=== PATIENT | female | born 1955 | race Two or more races ===

== ENCOUNTER 2017-09-17 08:32 | Outpatient (CLI) | payer OTHER | END 2017-09-17 08:34 | disposition home or self-care (01) | LOC: MAMO-SONO 08:32 | DX: Z12.31 Encounter for screening mammogram for malignant neoplasm of breast (principal); Z87.898 Personal history of other specified conditions; Z12.39 Encounter for other screening for malignant neoplasm of breast; J45.998 Other asthma ==

== ENCOUNTER 2017-11-07 08:19 | Outpatient (CLI) | payer OTHER | END 2017-11-07 08:27 | disposition home or self-care (01) | LOC: SONOGRAMA 08:19 → MAMO-SONO 09:45 | DX: R10.13 Epigastric pain (principal) ==

== ENCOUNTER 2018-09-20 08:57 | Outpatient (CLI) | payer OTHER | END 2018-09-20 09:01 | disposition home or self-care (01) | LOC: MAMO-SONO 08:57 | DX: Z12.31 Encounter for screening mammogram for malignant neoplasm of breast (principal); Z87.898 Personal history of other specified conditions ==

== ENCOUNTER 2018-09-20 10:31 | Outpatient (CLI) | payer OTHER | END 2018-09-20 10:36 | disposition home or self-care (01) | LOC: RAD 10:31 | DX: M15.0 Primary generalized (osteo)arthritis (principal); M15.4 Erosive (osteo)arthritis ==

== ENCOUNTER 2019-01-01 09:32 | Outpatient (CLI) | payer OTHER | END 2019-01-01 09:36 | disposition home or self-care (01) | LOC: NUCLEAR 09:32 | DX: M81.0 Age-related osteoporosis without current pathological fracture (principal) ==

== ENCOUNTER 2019-01-20 12:33 | Outpatient (CLI) | payer OTHER | END 2019-01-20 12:43 | disposition home or self-care (01) | LOC: RAD 12:33 | DX: M25.552 Pain in left hip (principal); M25.562 Pain in left knee; M25.561 Pain in right knee ==

== ENCOUNTER 2019-01-31 07:20 | Outpatient (CLI) | payer OTHER | END 2019-01-31 07:32 | disposition home or self-care (01) | LOC: MRI 07:20 | DX: M54.5 Low back pain (principal) | CPT/HCPCS: 72148 ==

== ENCOUNTER 2019-04-02 07:51 | Outpatient (CLI) | payer OTHER | END 2019-04-02 07:54 | disposition home or self-care (01) | LOC: TOM 07:51 | DX: Z86.010 Personal history of colon polyps (principal); K56.600 Partial intestinal obstruction, unspecified as to cause ==

== ENCOUNTER 2019-10-28 11:10 | Outpatient (CLI) | payer OTHER | END 2019-10-28 11:16 | disposition home or self-care (01) | LOC: LAB 11:10 | DX: Z20.828 Contact with and (suspected) exposure to other viral communicable diseases (principal) ==

== ENCOUNTER → 2019-10-29 | Outpatient (CLI) | payer OTHER | END | disposition home or self-care (01) | LOC: SONOGRAMA 08:15 → MAMO-SONO 10:15 | DX: M75.102 Unspecified rotator cuff tear or rupture of left shoulder, not specified as traumatic (principal) ==

== ENCOUNTER → 2019-12-29 06:25 | Outpatient (CLI) | payer OTHER | END | disposition home or self-care (01) | LOC: LAB 06:25 | PROVIDERS: ATTEND Orthopaedic Surgery | DX: R07.89 Other chest pain (principal); I10 Essential (primary) hypertension; D68.8 Other specified coagulation defects; E78.2 Mixed hyperlipidemia; N39.0 Urinary tract infection, site not specified; Z03.818 Encounter for observation for suspected exposure to other biological agents ruled out; Z20.828 Contact with and (suspected) exposure to other viral communicable diseases ==

== ENCOUNTER 2019-12-30 10:44 | Outpatient (CLI) | payer OTHER | END 2019-12-30 10:48 | disposition home or self-care (01) | LOC: LAB 10:44 | PROVIDERS: ATTEND Specialist | DX: N39.0 Urinary tract infection, site not specified (principal) ==

== ENCOUNTER 2020-01-01 08:43 | Outpatient (CLI) | payer OTHER | END 2020-01-01 08:59 | disposition home or self-care (01) | LOC: LAB 08:43 | PROVIDERS: ATTEND Specialist | DX: N39.0 Urinary tract infection, site not specified (principal); E11.65 Type 2 diabetes mellitus with hyperglycemia ==

== ENCOUNTER 2020-06-14 07:17 | Outpatient (CLI) | payer OTHER | END 2020-06-14 07:22 | disposition home or self-care (01) | LOC: MAMO-SONO 07:17 | PROVIDERS: ATTEND Specialist | DX: Z12.31 Encounter for screening mammogram for malignant neoplasm of breast (principal); R92.0 Mammographic microcalcification found on diagnostic imaging of breast; N64.59 Other signs and symptoms in breast ==

== ENCOUNTER → 2020-10-20 06:23 | Outpatient (CLI) | payer OTHER | END | disposition home or self-care (01) | LOC: LAB 06:23 | PROVIDERS: ATTEND Specialist | DX: E11.21 Type 2 diabetes mellitus with diabetic nephropathy (principal); U07.1 COVID-19; N39.0 Urinary tract infection, site not specified; Z12.11 Encounter for screening for malignant neoplasm of colon; J45.998 Other asthma ==

== ENCOUNTER 2021-02-07 15:00 | Outpatient (CLI) | payer OTHER | END 2021-02-07 18:45 | disposition home or self-care (01) | LOC: PPH VACUNA 15:00 | DX: Z23 Encounter for immunization (principal) ==

== ENCOUNTER → 2021-04-05 06:22 | Outpatient (CLI) | payer OTHER | END | disposition home or self-care (01) | LOC: LAB 06:22 | PROVIDERS: ATTEND Specialist | DX: R07.89 Other chest pain (principal); E03.8 Other specified hypothyroidism; E78.2 Mixed hyperlipidemia; J45.998 Other asthma ==

== ENCOUNTER 2021-04-05 07:19 | Outpatient (CLI) | payer OTHER | END 2021-04-05 07:28 | disposition home or self-care (01) | LOC: SONOGRAMA 07:19 → MAMO-SONO 08:15 | PROVIDERS: ATTEND Specialist | DX: E04.2 Nontoxic multinodular goiter (principal); E03.8 Other specified hypothyroidism ==

== ENCOUNTER 2021-07-21 06:14 | Outpatient (CLI) | payer OTHER | END 2021-07-21 06:15 | disposition home or self-care (01) | LOC: LAB 06:14 | PROVIDERS: ATTEND Specialist | DX: E03.9 Hypothyroidism, unspecified (principal); E11.21 Type 2 diabetes mellitus with diabetic nephropathy; N39.9 Disorder of urinary system, unspecified; E78.2 Mixed hyperlipidemia; E11.65 Type 2 diabetes mellitus with hyperglycemia; Z12.11 Encounter for screening for malignant neoplasm of colon; D64.9 Anemia, unspecified; J45.998 Other asthma ==

== ENCOUNTER → 2021-07-22 06:28 | Outpatient (CLI) | payer OTHER | END | disposition home or self-care (01) | LOC: LAB 06:28 | PROVIDERS: ATTEND Specialist | DX: E03.9 Hypothyroidism, unspecified (principal); E11.21 Type 2 diabetes mellitus with diabetic nephropathy; N39.9 Disorder of urinary system, unspecified; E78.2 Mixed hyperlipidemia; E11.65 Type 2 diabetes mellitus with hyperglycemia; Z12.11 Encounter for screening for malignant neoplasm of colon; D64.9 Anemia, unspecified ==

== ENCOUNTER 2021-10-05 06:14 | Outpatient (CLI) | payer OTHER | END 2021-10-05 06:20 | disposition home or self-care (01) | LOC: LAB 06:14 | PROVIDERS: ATTEND Specialist | DX: N25.81 Secondary hyperparathyroidism of renal origin (principal); E78.2 Mixed hyperlipidemia; J45.998 Other asthma ==

== ENCOUNTER 2021-10-05 07:13 | Outpatient (CLI) | payer OTHER | END 2021-10-05 07:19 | disposition home or self-care (01) | LOC: MAMO-SONO 07:13 | PROVIDERS: ATTEND Specialist | DX: Z12.31 Encounter for screening mammogram for malignant neoplasm of breast (principal) ==

== ENCOUNTER 2021-10-05 08:00 | Outpatient (CLI) | payer OTHER | END 2021-10-05 08:30 | disposition home or self-care (01) | LOC: PPH VACUNA 08:00 | PROVIDERS: ATTEND Emergency Medicine Pediatric Emergency Medicine | DX: Z23 Encounter for immunization (principal) ==

== ENCOUNTER 2021-11-03 08:08 | Outpatient (CLI) | payer OTHER | END 2021-11-03 08:09 | disposition home or self-care (01) | LOC: NUCLEAR 08:08 | PROVIDERS: ATTEND Specialist | DX: E21.5 Disorder of parathyroid gland, unspecified (principal); Z88.8 Allergy status to other drugs, medicaments and biological substances | CPT/HCPCS: 78071; A9500 ==

== ENCOUNTER 2022-01-18 07:26 | Outpatient (CLI) | payer OTHER | END 2022-01-18 07:30 | disposition home or self-care (01) | LOC: LAB 07:26 | PROVIDERS: ATTEND Specialist | DX: D50.9 Iron deficiency anemia, unspecified (principal); I11.9 Hypertensive heart disease without heart failure; E78.2 Mixed hyperlipidemia; E03.9 Hypothyroidism, unspecified; Z12.11 Encounter for screening for malignant neoplasm of colon ==

== ENCOUNTER → 2022-01-19 | Outpatient (CLI) | payer OTHER | END | disposition home or self-care (01) | LOC: RAD 11:38 | PROVIDERS: ATTEND Orthopaedic Surgery | DX: M25.561 Pain in right knee (principal); M25.562 Pain in left knee; M25.431 Effusion, right wrist; M25.432 Effusion, left wrist ==

== ENCOUNTER 2022-05-02 08:31 | Outpatient (CLI) | payer OTHER | END 2022-05-02 08:41 | disposition home or self-care (01) | LOC: PPH VACUNA 08:31 | PROVIDERS: ATTEND Emergency Medicine Pediatric Emergency Medicine | DX: Z23 Encounter for immunization (principal) ==

== ENCOUNTER 2022-08-05 07:09 | Outpatient (CLI) | payer OTHER | END 2022-08-05 07:10 | disposition home or self-care (01) | LOC: LAB 07:09 | PROVIDERS: ATTEND Specialist | DX: R07.89 Other chest pain (principal); E03.8 Other specified hypothyroidism; M00.80 Arthritis due to other bacteria, unspecified joint; D64.89 Other specified anemias; E11.69 Type 2 diabetes mellitus with other specified complication; N39.9 Disorder of urinary system, unspecified; Z13.220 Encounter for screening for lipoid disorders; E11.21 Type 2 diabetes mellitus with diabetic nephropathy; R19.5 Other fecal abnormalities ==

== ENCOUNTER → 2022-08-07 06:22 | Outpatient (CLI) | payer OTHER | END | disposition home or self-care (01) | LOC: LAB 06:22 | PROVIDERS: ATTEND Specialist | DX: R07.89 Other chest pain (principal); E03.8 Other specified hypothyroidism; M00.89 Polyarthritis due to other bacteria; D64.89 Other specified anemias; E11.69 Type 2 diabetes mellitus with other specified complication; N39.9 Disorder of urinary system, unspecified; Z13.220 Encounter for screening for lipoid disorders; E11.21 Type 2 diabetes mellitus with diabetic nephropathy; R19.5 Other fecal abnormalities ==

== ENCOUNTER → 2022-09-08 06:14 | Outpatient (CLI) | payer OTHER | END | disposition home or self-care (01) | LOC: LAB 06:14 | PROVIDERS: ATTEND Ophthalmology | DX: I11.9 Hypertensive heart disease without heart failure (principal); D68.8 Other specified coagulation defects; H25.013 Cortical age-related cataract, bilateral; Z98.41 Cataract extraction status, right eye ==

== ENCOUNTER 2022-10-14 07:17 | Outpatient (CLI) | payer OTHER | END 2022-10-14 07:23 | disposition home or self-care (01) | LOC: LAB 07:17 | PROVIDERS: ATTEND Internal Medicine Gastroenterology | DX: K29.30 Chronic superficial gastritis without bleeding (principal); B96.81 Helicobacter pylori [H. pylori] as the cause of diseases classified elsewhere; K57.30 Diverticulosis of large intestine without perforation or abscess without bleeding; Z86.010 Personal history of colon polyps; Z80.0 Family history of malignant neoplasm of digestive organs; R10.13 Epigastric pain; Z11.52 Encounter for screening for COVID-19; Z20.822 Contact with and (suspected) exposure to COVID-19; Z20.828 Contact with and (suspected) exposure to other viral communicable diseases ==

== ENCOUNTER 2022-10-17 06:24 | Outpatient (CLI) | payer OTHER | END 2022-10-17 06:30 | disposition home or self-care (01) | LOC: LAB 06:24 | PROVIDERS: ATTEND Specialist | DX: Z13.220 Encounter for screening for lipoid disorders (principal); E11.69 Type 2 diabetes mellitus with other specified complication; D64.89 Other specified anemias; N39.9 Disorder of urinary system, unspecified; N25.81 Secondary hyperparathyroidism of renal origin; R19.5 Other fecal abnormalities ==

== ENCOUNTER 2022-10-17 07:13 | Outpatient (CLI) | payer OTHER | END 2022-10-17 07:23 | disposition home or self-care (01) | LOC: MAMO-SONO 07:13 | PROVIDERS: ATTEND Specialist | DX: Z12.31 Encounter for screening mammogram for malignant neoplasm of breast (principal); Z12.39 Encounter for other screening for malignant neoplasm of breast; N60.39 Fibrosclerosis of unspecified breast ==

== ENCOUNTER 2022-12-11 06:58 | Outpatient (CLI) | payer OTHER | END 2022-12-11 06:59 | disposition home or self-care (01) | LOC: LAB 06:58 | PROVIDERS: ATTEND Internal Medicine Gastroenterology | DX: Z11.52 Encounter for screening for COVID-19 (principal); Z20.822 Contact with and (suspected) exposure to COVID-19; Z20.828 Contact with and (suspected) exposure to other viral communicable diseases ==

== ENCOUNTER 2023-01-15 06:38 | Outpatient (CLI) | payer OTHER | END 2023-01-15 06:39 | disposition home or self-care (01) | LOC: LAB 06:38 | PROVIDERS: ATTEND Specialist | DX: Z13.220 Encounter for screening for lipoid disorders (principal); D64.89 Other specified anemias; E03.8 Other specified hypothyroidism; N25.81 Secondary hyperparathyroidism of renal origin; E11.69 Type 2 diabetes mellitus with other specified complication ==

== ENCOUNTER 2023-01-15 07:17 | Outpatient (CLI) | payer OTHER | END 2023-01-15 07:46 | disposition home or self-care (01) | LOC: TOM 07:17 | PROVIDERS: ATTEND Specialist | DX: D35.00 Benign neoplasm of unspecified adrenal gland (principal); E26.9 Hyperaldosteronism, unspecified ==

== ENCOUNTER 2023-01-30 07:08 | Outpatient (CLI) | payer OTHER | END 2023-01-30 07:18 | disposition home or self-care (01) | LOC: TOM 07:08 | PROVIDERS: ATTEND Specialist | DX: C72.0 Malignant neoplasm of spinal cord (principal); E21.5 Disorder of parathyroid gland, unspecified; E21.0 Primary hyperparathyroidism | CPT/HCPCS: 70492; Q9965 ==

== ENCOUNTER 2023-04-17 06:36 | Outpatient (CLI) | payer OTHER ==
[2023-04-17 07:10] LABS: PH,URINE 7.5 (5.0-8.0); URINE APPEARANCE Turbid; URINE BILIRRUBIN Negative (NEGATIVE); URINE BLOOD Negative; URINE COLOR Yellow; URINE GLUCOSE Negative (NEGATIVE); URINE LEUKOCYTE Moderate; URINE NITRATE Negative; URINE PROTEIN Trace (NEGATIVE)
[2023-04-17 07:11] LABS: URINE EPITHELIAL CELLS 178.4 uL (0.0-38.8); URINE RBC 2.8 uL (0.0-20.8); URINE WBC 667.1 uL (0.0-23.2)
[2023-04-17 07:17] LABS: URINE BACTERIA > 9821.5 uL (0.0-1933)
[2023-04-17 07:18] LABS: HEMATOCRIT 38.3 % (36.0-45.00); HEMOGLOBIN 12.9 g/dL (12.0-15.00); MEAN CORPUSCULAR HEMOGLOBIN 29.4 pg (27.00-32.0); MEAN CORPUSCULAR HGB CONC 33.8 g/dl (32.0-36.0); PLATELET COUNT 188 K/uL (150-450); RED CELL DISTRIBUTION WIDTH 13.8 % (11.5-14.5)
[2023-04-17 08:03] LABS: ALBUMIN 3.3 gm/dL (3.4-5.0); BILIRUBIN TOTAL 0.38 mg/dL (0.3-1.2); CALCIUM 8.7 mg/dL (8.5-10.1); CHOL HDL RATIO 3.7 (0-5.0); CREATININE SERUM 0.63 mg/dL (0.55-1.02); FREE TRIODOTIRONINE 2.96 pg/ml (2.18-3.98); GFR 94.25; GLOBULINA 3.3 G/DL (2.4-3.5); POTASSIUM 3.52 mEq/L (3.5-5.1); T4 FREE 0.87 NG/ML (0.76-1.46); TOTAL PROTEIN 6.6 gm/dL (6.4-8.2); TSH 4.82 uIU/mL (0.358-3.74)
== END 2023-04-17 06:37 | disposition home or self-care (01) ==
LOC: LAB 06:36
PROVIDERS: ATTEND Specialist
DX: E03.9 Hypothyroidism, unspecified (principal); E11.21 Type 2 diabetes mellitus with diabetic nephropathy; N39.0 Urinary tract infection, site not specified; E78.2 Mixed hyperlipidemia; E11.65 Type 2 diabetes mellitus with hyperglycemia; D64.9 Anemia, unspecified

== ENCOUNTER 2023-07-05 07:06 | Outpatient (CLI) | payer OTHER | END 2023-07-05 07:21 | disposition home or self-care (01) | LOC: SONOGRAMA 07:06 | PROVIDERS: ATTEND Specialist | DX: M75.40 Impingement syndrome of unspecified shoulder (principal); M75.100 Unspecified rotator cuff tear or rupture of unspecified shoulder, not specified as traumatic ==

== ENCOUNTER → 2023-07-17 06:42 | Outpatient (CLI) | payer OTHER ==
[2023-07-17 07:49] LABS: PH,URINE 7.5 (5.0-8.0); URINE APPEARANCE Turbid; URINE BILIRRUBIN Negative (NEGATIVE); URINE BLOOD Small; URINE COLOR Yellow; URINE GLUCOSE Negative (NEGATIVE); URINE LEUKOCYTE Small; URINE NITRATE Negative; URINE PROTEIN Negative (NEGATIVE)
[2023-07-17 07:51] LABS: URINE BACTERIA 3458.4 uL (0.0-1933); URINE RBC 101.6 uL (0.0-20.8); URINE WBC 183.1 uL (0.0-23.2)
[2023-07-17 07:55] LABS: HEMOGLOBIN 13.3 g/dL (12.0-15.00); MEAN CELL VOLUME 86.3 fL (80.00-100.00); MEAN CORPUSCULAR HEMOGLOBIN 28.7 pg (27.00-32.0); MEAN CORPUSCULAR HGB CONC 33.3 g/dl (32.0-36.0); PLATELET COUNT 196 K/uL (150-450); RED BLOOD COUNT 4.63 M/uL (4.00-6.00); RED CELL DISTRIBUTION WIDTH 13.5 % (11.5-14.5)
[2023-07-17 08:20] LABS: ALBUMIN 3.5 gm/dL (3.4-5.0); BILIRUBIN TOTAL 0.46 mg/dL (0.3-1.2); CHOL HDL RATIO 4.2 (0-5.0); CREATININE SERUM 0.68 mg/dL (0.55-1.02); FREE TRIODOTIRONINE 3.27 pg/ml (2.18-3.98); GFR 86.3; GLOBULINA 3.4 G/DL (2.4-3.5); POTASSIUM 3.58 mEq/L (3.5-5.1); T4 FREE 0.95 NG/ML (0.76-1.46); T4 TOTAL 9.93 UG/DL (4.8-13.9); TOTAL PROTEIN 6.9 gm/dL (6.4-8.2); TSH 2.94 uIU/mL (0.358-3.74)
[2023-07-17 08:22] LABS: C-REACTIVE PROTEIN 0.37 MG/DL (0.00-0.29)
[2023-07-17 08:28] LABS: URINE EPITHELIAL CELLS > 201.7 uL (0.0-38.8)
== END | disposition home or self-care (01) ==
LOC: LAB 06:42
PROVIDERS: ATTEND Specialist
DX: E11.69 Type 2 diabetes mellitus with other specified complication (principal); Z13.220 Encounter for screening for lipoid disorders; J45.991 Cough variant asthma

== ENCOUNTER → 2023-07-18 06:20 | Outpatient (CLI) | payer OTHER ==
[2023-07-18 10:40] LABS: ob NEGATIVE (NEGATIVE)
== END | disposition home or self-care (01) ==
LOC: LAB 06:20
PROVIDERS: ATTEND Specialist
DX: E11.69 Type 2 diabetes mellitus with other specified complication (principal); Z13.220 Encounter for screening for lipoid disorders; E03.8 Other specified hypothyroidism; D64.89 Other specified anemias; R19.5 Other fecal abnormalities; N39.9 Disorder of urinary system, unspecified; N25.81 Secondary hyperparathyroidism of renal origin

== ENCOUNTER 2023-07-31 08:26 | Outpatient (CLI) | payer OTHER | END 2023-07-31 08:27 | disposition home or self-care (01) | LOC: LAB 08:26 | PROVIDERS: ATTEND Anesthesiology | DX: R05.8 Other specified cough (principal); Z20.822 Contact with and (suspected) exposure to COVID-19 ==

== ENCOUNTER 2024-01-17 07:04 | Outpatient (CLI) | payer OTHER ==
[2024-01-17 07:38] LABS: HEMATOCRIT 39.1 % (36.0-45.00); HEMOGLOBIN 13.3 g/dL (12.0-15.00); MEAN CELL VOLUME 87.8 fL (80.00-100.00); MEAN CORPUSCULAR HEMOGLOBIN 29.9 pg (27.00-32.0); PLATELET COUNT 196 K/uL (150-450); RED BLOOD COUNT 4.45 M/uL (4.00-6.00); RED CELL DISTRIBUTION WIDTH 13.4 % (11.5-14.5)
[2024-01-17 07:40] LABS: PH,URINE 6.5 (5.0-8.0); URINE APPEARANCE Cloudy; URINE BILIRRUBIN Negative (NEGATIVE); URINE BLOOD Negative; URINE COLOR Yellow; URINE GLUCOSE Negative (NEGATIVE); URINE KETONE Negative (NEGATIVE); URINE LEUKOCYTE Moderate; URINE NITRATE Positive; URINE PROTEIN Trace (NEGATIVE); URINE UROBILINOGEN 0.2 E.U./dl
[2024-01-17 07:44] LABS: URINE RBC 11.7 uL (0.0-20.8); URINE WBC 597.5 uL (0.0-23.2)
[2024-01-17 08:01] LABS: URINE BACTERIA > 9821.5 uL (0.0-1933); URINE CAST 0.45 uL (0.0-1.40)
[2024-01-17 08:40] LABS: ALBUMIN 3.5 gm/dL (3.4-5.0); BILIRUBIN TOTAL 0.45 mg/dL (0.3-1.2); CALCIUM 9.1 mg/dL (8.5-10.1); CHOL HDL RATIO 3.9 (0-5.0); CREATININE SERUM 0.74 mg/dL (0.55-1.02); FREE TRIODOTIRONINE 2.83 pg/ml (2.18-3.98); GFR 78.04; GLOBULINA 3.1 G/DL (2.4-3.5); POTASSIUM 3.63 mEq/L (3.5-5.1); T4 FREE 0.89 NG/ML (0.76-1.46); TOTAL PROTEIN 6.6 gm/dL (6.4-8.2); TSH 3.8 uIU/mL (0.358-3.74)
[2024-01-17 08:52] LABS: C-REACTIVE PROTEIN 0.33 MG/DL (0.00-0.29)
== END 2024-01-17 07:11 | disposition home or self-care (01) ==
LOC: LAB 07:04
PROVIDERS: ATTEND Specialist
DX: D64.89 Other specified anemias (principal); E11.21 Type 2 diabetes mellitus with diabetic nephropathy; N39.0 Urinary tract infection, site not specified; E11.69 Type 2 diabetes mellitus with other specified complication; N25.81 Secondary hyperparathyroidism of renal origin; N39.9 Disorder of urinary system, unspecified; E03.8 Other specified hypothyroidism; Z13.220 Encounter for screening for lipoid disorders; R07.89 Other chest pain

== ENCOUNTER 2024-04-08 09:17 | Outpatient (CLI) | payer OTHER | END 2024-04-08 09:19 | disposition home or self-care (01) | LOC: NUCLEAR 09:17 | DX: I65.1 Occlusion and stenosis of basilar artery (principal); R07.0 Pain in throat; I25.10 Atherosclerotic heart disease of native coronary artery without angina pectoris; M81.0 Age-related osteoporosis without current pathological fracture ==

== ENCOUNTER 2024-04-11 07:08 | Outpatient (CLI) | payer OTHER | END 2024-04-11 07:10 | disposition home or self-care (01) | LOC: NUCLEAR 07:08 | PROVIDERS: ATTEND Internal Medicine | DX: I20.9 Angina pectoris, unspecified (principal) | CPT/HCPCS: 78452; 93017; A9500 ==

== ENCOUNTER 2024-04-16 07:10 | Outpatient (CLI) | payer OTHER | END 2024-04-16 07:11 | disposition home or self-care (01) | LOC: NUCLEAR 07:10 | PROVIDERS: ATTEND Specialist | DX: D35.1 Benign neoplasm of parathyroid gland (principal) | CPT/HCPCS: 78070; A9500 ==

== ENCOUNTER 2024-04-28 06:40 | Outpatient (CLI) | payer OTHER ==
[2024-04-28 07:40] LABS: HEMATOCRIT 39.6 % (36.0-45.00); HEMOGLOBIN 13.5 g/dL (12.0-15.00); MEAN CELL VOLUME 87.6 fL (80.00-100.00); MEAN CORPUSCULAR HEMOGLOBIN 29.9 pg (27.00-32.0); MEAN CORPUSCULAR HGB CONC 34.1 g/dl (32.0-36.0); PLATELET COUNT 193 K/uL (150-450); RED BLOOD COUNT 4.53 M/uL (4.00-6.00); RED CELL DISTRIBUTION WIDTH 13.2 % (11.5-14.5)
[2024-04-28 07:46] LABS: URINE APPEARANCE Cloudy; URINE BILIRRUBIN Negative (NEGATIVE); URINE BLOOD Negative; URINE COLOR Yellow; URINE GLUCOSE Negative (NEGATIVE); URINE KETONE Trace (NEGATIVE); URINE LEUKOCYTE Moderate; URINE NITRATE Negative; URINE PROTEIN Trace (NEGATIVE)
[2024-04-28 07:57] LABS: URINE EPITHELIAL CELLS 25.6 uL (0.0-38.8); URINE RBC 39.3 uL (0.0-20.8); URINE WBC 2013.7 uL (0.0-23.2)
[2024-04-28 07:59] LABS: ob NEGATIVE (NEGATIVE)
[2024-04-28 08:21] LABS: URINE CRYSTALS MODERATE /HPF
[2024-04-28 08:26] LABS: ALBUMIN 3.5 gm/dL (3.4-5.0); ALKALINE PHOSPHATASE 128 U/L (50-136); ALT/SGPT 20 U/L (12-78); ANION GAP 6 (10.0-20.0); AST/SGOT 19 U/L (15-37); BILIRUBIN TOTAL 0.31 mg/dL (0.3-1.2); BLOOD UREA NITROGEN 10 mg/dL (7-18); BUN CREA RATIO 14 (7.0-25.0); CALCIUM 9.1 mg/dL (8.5-10.1); CARBON DIOXIDE 31 mEq/L (21-32); CHLORIDE 109 mmol/L (98-107); CREATININE SERUM 0.71 mg/dL (0.55-1.02); GFR 81.86; GLOBULINA 3.1 G/DL (2.4-3.5); GLUCOSE FASTING 93 mg/dL (65-100); OSMOLALITY SERUM 282 MOSM/KG (275-295); POTASSIUM 4.03 mEq/L (3.5-5.1); SODIUM 142 mmol/L (136-145); TOTAL PROTEIN 6.6 gm/dL (6.4-8.2)
[2024-04-28 08:42] LABS: C-REACTIVE PROTEIN < 0.29 MG/DL (0.00-0.29); CHOL HDL RATIO 4.3 (0-5.0); FREE TRIODOTIRONINE 3.14 pg/ml (2.18-3.98)
== END 2024-04-28 06:49 | disposition home or self-care (01) ==
LOC: LAB 06:40
PROVIDERS: ATTEND Specialist
DX: E11.69 Type 2 diabetes mellitus with other specified complication (principal); N39.9 Disorder of urinary system, unspecified; Z13.220 Encounter for screening for lipoid disorders; E03.8 Other specified hypothyroidism; R07.89 Other chest pain; N25.81 Secondary hyperparathyroidism of renal origin; E11.21 Type 2 diabetes mellitus with diabetic nephropathy; M00.80 Arthritis due to other bacteria, unspecified joint; K92.2 Gastrointestinal hemorrhage, unspecified; Z12.11 Encounter for screening for malignant neoplasm of colon; N39.0 Urinary tract infection, site not specified; D64.89 Other specified anemias

== ENCOUNTER 2024-07-25 06:52 | Outpatient (CLI) | payer OTHER ==
[2024-07-25 07:51] LABS: HEMATOCRIT 39.3 % (36.0-45.00); HEMOGLOBIN 13.3 g/dL (12.0-15.00); MEAN CELL VOLUME 88.2 fL (80.00-100.00); MEAN CORPUSCULAR HEMOGLOBIN 29.9 pg (27.00-32.0); MEAN CORPUSCULAR HGB CONC 33.9 g/dl (32.0-36.0); PLATELET COUNT 192 K/uL (150-450); RED BLOOD COUNT 4.46 M/uL (4.00-6.00); RED CELL DISTRIBUTION WIDTH 13.7 % (11.5-14.5)
[2024-07-25 08:01] LABS: URINE APPEARANCE Clear; URINE BACTERIA 132.1 uL (0.0-1933); URINE BILIRRUBIN Negative (NEGATIVE); URINE BLOOD Negative; URINE COLOR Yellow; URINE EPITHELIAL CELLS 28.1 uL (0.0-38.8); URINE GLUCOSE Negative (NEGATIVE); URINE KETONE Negative (NEGATIVE); URINE LEUKOCYTE Negative; URINE NITRATE Negative; URINE PROTEIN Negative (NEGATIVE); URINE RBC 5.7 uL (0.0-20.8); URINE WBC 9.3 uL (0.0-23.2)
[2024-07-25 08:10] LABS: CREATININE URINE RANDOM 99.9 MG/DL (30-125)
[2024-07-25 08:27] LABS: ALBUMIN 3.4 gm/dL (3.4-5.0); BILIRUBIN TOTAL 0.32 mg/dL (0.3-1.2); CALCIUM 8.8 mg/dL (8.5-10.1); CHOL HDL RATIO 3.4 (0-5.0); CREATININE SERUM 0.72 mg/dL (0.55-1.02); GFR 80.55; GLOBULINA 3.4 G/DL (2.4-3.5); POTASSIUM 4.02 mEq/L (3.5-5.1); TOTAL PROTEIN 6.8 gm/dL (6.4-8.2)
== END 2024-07-25 06:53 | disposition home or self-care (01) ==
LOC: LAB 06:52
PROVIDERS: ATTEND Specialist
DX: E78.2 Mixed hyperlipidemia (principal); E11.65 Type 2 diabetes mellitus with hyperglycemia; D64.9 Anemia, unspecified; E55.9 Vitamin D deficiency, unspecified; E11.21 Type 2 diabetes mellitus with diabetic nephropathy; N39.9 Disorder of urinary system, unspecified; N25.81 Secondary hyperparathyroidism of renal origin

== ENCOUNTER 2024-07-25 07:47 | Outpatient (CLI) | payer OTHER | END 2024-07-25 07:51 | disposition home or self-care (01) | LOC: SONOGRAMA 07:47 | PROVIDERS: ATTEND Specialist | DX: R33.9 Retention of urine, unspecified (principal); J45.998 Other asthma ==

== ENCOUNTER 2024-08-07 09:26 | Outpatient (CLI) | payer OTHER | END 2024-08-07 09:33 | disposition home or self-care (01) | LOC: SONOGRAMA 09:26 | PROVIDERS: ATTEND Specialist | DX: N31.9 Neuromuscular dysfunction of bladder, unspecified (principal) ==

== ENCOUNTER 2024-09-10 07:58 | Outpatient (CLI) | payer OTHER | END 2024-09-10 08:07 | disposition home or self-care (01) | LOC: RAD 07:58 | PROVIDERS: ATTEND Internal Medicine | DX: M25.552 Pain in left hip (principal) ==

== ENCOUNTER 2024-10-28 08:08 | Outpatient (CLI) | payer OTHER ==
[2024-10-28 08:59] LABS: BASO % 0.2 % (0.1-1.2); EOS # 0.15 (0.04-0.54); EOS % 3.3 % (0.7-7.0); HEMOGLOBIN 13.6 g/dL (11.2-15.7); LYMPH # 1.52 (1.18-3.74); LYMPH % 33.4 % (19.3-53.1); MEAN CORPUSCULAR HEMOGLOBIN 29.3 pg (25.6-32.2); MONO # 0.48 (0.24-0.82); MONO % 10.5 % (4.7-12.5); NEUT # 2.38 (1.56-6.13); NEUT % 52.4 % (34.0-71.1); PLATELET COUNT 208 K/uL (163-369); RED BLOOD COUNT 4.64 M/uL (3.93-5.22); RED CELL DISTRIBUTION WIDTH 12.9 % (11.6-14.4)
[2024-10-28 09:09] LABS: PH,URINE 6.5 (5.0-8.0); URINE APPEARANCE Clear; URINE BILIRRUBIN Negative (NEGATIVE); URINE BLOOD Negative; URINE COLOR Yellow; URINE GLUCOSE Negative (NEGATIVE); URINE KETONE Negative (NEGATIVE); URINE LEUKOCYTE Negative; URINE NITRATE Negative; URINE PROTEIN Negative (NEGATIVE)
[2024-10-28 09:12] LABS: ERYTHROCYTE SEDIMENTATION RATE 18 mm/hr (0-30)
[2024-10-28 09:14] LABS: URINE BACTERIA 394.1 uL (0.0-1933); URINE EPITHELIAL CELLS 65.8 uL (0.0-38.8); URINE RBC 7.6 uL (0.0-20.8); URINE WBC 9.3 uL (0.0-23.2)
[2024-10-28 10:30] LABS: ALBUMIN 3.6 gm/dL (3.4-5.0); BILIRUBIN TOTAL 0.36 mg/dL (0.3-1.2); CALCIUM 8.6 mg/dL (8.5-10.1); CREATININE SERUM 0.66 mg/dL (0.55-1.02); FREE TRIODOTIRONINE 2.51 pg/ml (2.18-3.98); GFR 88.8; GLOBULINA 3.4 G/DL (2.4-3.5); POTASSIUM 3.86 mEq/L (3.5-5.1); T4 FREE 0.98 NG/ML (0.76-1.46); TSH 2.65 uIU/mL (0.358-3.74)
[2024-10-28 10:34] LABS: C-REACTIVE PROTEIN 0.64 MG/DL (0.00-0.29)
== END 2024-10-28 08:09 | disposition home or self-care (01) ==
LOC: LAB 08:08
PROVIDERS: Internal Medicine; ATTEND Specialist
DX: E03.9 Hypothyroidism, unspecified (principal); N39.9 Disorder of urinary system, unspecified; D64.9 Anemia, unspecified; E11.65 Type 2 diabetes mellitus with hyperglycemia; J45.998 Other asthma; E55.9 Vitamin D deficiency, unspecified; M35.3 Polymyalgia rheumatica

== ENCOUNTER 2024-12-13 08:06 | Outpatient (CLI) | payer OTHER | END 2024-12-13 08:12 | disposition home or self-care (01) | LOC: RAD 08:06 | PROVIDERS: ATTEND Physical Medicine & Rehabilitation | DX: M16.12 Unilateral primary osteoarthritis, left hip (principal) ==

== ENCOUNTER 2025-01-31 17:03 | Emergency (ER) | payer OTHER ==
[~2025-01-31] VITALS: Ht 162.6 cm; Wt 72.6 kg
[~2025-01-31 17:03] MED LIST: NEURONTIN800 MG PO; NORVASC2.5 M1 PO; OSEL75CA PO; SYNTHROID100 MCG PO; TUSNEL LIQUID178 ML PO
[2025-01-31] MEDS ORDERED: 0.9 % SODIUM CHLORIDE 500 ML IV STA (20:41)
[2025-01-31] MEDS ORDERED: DIPHENOXYLATE HCL/ATROPINE 1 UDTAB TABLET PO STA (20:42)
[2025-01-31] MEDS ORDERED: HYOSCYAMINE SULFATE 0.125 MG TAB.SUBL SL ONE (20:45)
[2025-01-31 21:11] LABS: BASO % 0.2 % (0.1-1.2); EOS # 0.03 (0.04-0.54); EOS % 0.6 % (0.7-7.0); LYMPH # 1.51 (1.18-3.74); LYMPH % 31.2 % (19.3-53.1); MEAN PLATELET VOLUME 10.70 fl (9.4-12.4); MONO # 0.45 (0.24-0.82); MONO % 9.3 % (4.7-12.5); NEUT # 2.82 (1.56-6.13); NEUT % 58.3 % (34.0-71.1); RED CELL DISTRIBUTION WIDTH 12.5 % (11.6-14.4)
[2025-01-31 21:37] LABS: BUN CREA RATIO 13.0 (7.0-25.0); CREATININE SERUM 0.71 mg/dL (0.55-1.02); GFR 81.62; GLUCOSE FASTING 104.0 mg/dL (65-100); OSMOLALITY SERUM 290.0 MOSM/KG (275-295)
== END 2025-01-31 23:00 | disposition home or self-care (01) ==
LOC: ER 17:03
DX: K52.9 Noninfective gastroenteritis and colitis, unspecified (principal); Z88.3 Allergy status to other anti-infective agents; Z88.8 Allergy status to other drugs, medicaments and biological substances; Z91.048 Other nonmedicinal substance allergy status
CPT/HCPCS: 36415; 96365; 96366; 99282; J7042

== ENCOUNTER 2025-02-06 06:59 | Outpatient (CLI) | payer OTHER ==
[2025-02-06 07:57] LABS: BASO % 0.2 % (0.1-1.2); EOS # 0.05 (0.04-0.54); EOS % 0.9 % (0.7-7.0); LYMPH # 1.38 (1.18-3.74); LYMPH % 24.5 % (19.3-53.1); MEAN PLATELET VOLUME 10.60 fl (9.4-12.4); MONO # 0.55 (0.24-0.82); MONO % 9.8 % (4.7-12.5); NEUT # 3.63 (1.56-6.13); NEUT % 64.4 % (34.0-71.1); RED CELL DISTRIBUTION WIDTH 12.6 % (11.6-14.4)
[2025-02-06 08:08] LABS: URINE APPEARANCE Cloudy; URINE BILIRRUBIN Negative (NEGATIVE); URINE BLOOD Negative; URINE COLOR Dark Yellow; URINE GLUCOSE Negative (NEGATIVE); URINE KETONE Trace (NEGATIVE); URINE LEUKOCYTE Small; URINE NITRATE Positive; URINE PROTEIN 30 (NEGATIVE); URINE UROBILINOGEN 1.0 E.U./dl
[2025-02-06 08:10] LABS: URINE EPITHELIAL CELLS 93.8 uL (0.0-38.8); URINE RBC 11.8 uL (0.0-20.8); URINE WBC 374.1 uL (0.0-23.2)
[2025-02-06 08:25] LABS: CREATININE URINE RANDOM 338.0 MG/DL (30-125)
[2025-02-06 08:36] LABS: BUN CREA RATIO 14.0 (7.0-25.0); CHOL HDL RATIO 3.8 (0-5.0); CREATININE SERUM 0.85 mg/dL (0.55-1.02); GFR 66.31; GLUCOSE FASTING 96.0 mg/dL (65-100); HDL 33.0 mg/dl (40-60); LDL 59.0 mg/dl (0-130); OSMOLALITY SERUM 288.0 MOSM/KG (275-295); VLDL 32.0 (0-39)
[2025-02-06 08:58] LABS: URINE BACTERIA > 9821.5 uL (0.0-1933); URINE CAST 0.73 uL (0.0-1.40)
== END 2025-02-06 07:04 | disposition home or self-care (01) ==
LOC: LAB 06:59
PROVIDERS: ATTEND Specialist
DX: E11.21 Type 2 diabetes mellitus with diabetic nephropathy (principal); N39.9 Disorder of urinary system, unspecified; E78.2 Mixed hyperlipidemia; D64.9 Anemia, unspecified; N39.0 Urinary tract infection, site not specified

== ENCOUNTER 2025-04-25 07:09 | Outpatient (CLI) | payer OTHER ==
[2025-04-25 09:20] LABS: URINE APPEARANCE Clear; URINE BILIRRUBIN Negative (NEGATIVE); URINE BLOOD Negative; URINE COLOR Yellow; URINE GLUCOSE Negative (NEGATIVE); URINE KETONE Trace (NEGATIVE); URINE LEUKOCYTE Small; URINE NITRATE Negative; URINE PROTEIN Negative (NEGATIVE); URINE UROBILINOGEN 1.0 E.U./dl
[2025-04-25 09:27] LABS: URINE BACTERIA 3911.5 uL (0.0-1933); URINE EPITHELIAL CELLS 11.9 uL (0.0-38.8); URINE RBC 4.2 uL (0.0-20.8); URINE WBC 147.3 uL (0.0-23.2)
[2025-04-25 09:31] LABS: URINE CAST 0.43 uL (0.0-1.40)
[2025-04-25 10:26] LABS: CHOL HDL RATIO 4.7 (0-5.0); HDL 46 mg/dl (40-60); LDL 125 mg/dl (0-130); VLDL 44 (0-39)
[2025-04-25 10:28] LABS: ALT/SGPT 27.0 U/L (12-78); AST/SGOT 22.0 U/L (15-37); BILIRUBIN TOTAL 0.27 mg/dL (0.3-1.2); BUN CREA RATIO 21.0 (7.0-25.0); CREATININE SERUM 0.75 mg/dL (0.55-1.02); GFR 76.62; GLOBULINA 3.3 G/DL (2.4-3.5); GLUCOSE FASTING 99.0 mg/dL (65-100); OSMOLALITY SERUM 292.0 MOSM/KG (275-295)
[2025-04-25 10:29] LABS: CREATININE URINE RANDOM 172.0 MG/DL (30-125)
== END 2025-04-25 07:17 | disposition home or self-care (01) ==
LOC: LAB 07:09
PROVIDERS: ATTEND Specialist
DX: N39.9 Disorder of urinary system, unspecified (principal); E78.2 Mixed hyperlipidemia; E11.65 Type 2 diabetes mellitus with hyperglycemia; J45.998 Other asthma; N39.0 Urinary tract infection, site not specified; E11.21 Type 2 diabetes mellitus with diabetic nephropathy; M35.3 Polymyalgia rheumatica